=== PATIENT | female | born 2000 ===

== ENCOUNTER 2020-09-04 20:02 | Emergency (ER) | payer MEDICAID, OTHER ==
[~2020-09-04] VITALS: Ht 165 cm; Wt 100.0 kg
--- NOTE | 2020-09-04 21:33 | ED GU-Female ---
General Chief Complaint: Female Reproductive Stated Complaint: 3 WEEK MENSTRUAL CYCLE/ABD CRAMPING Source: patient Exam Limitations: no limitations History of Present Illness Date Seen by Provider: Sep 04, 2020 Time Seen by Provider: 21:10 Initial Comments This is a 19-year-old female who presents to the ER with complaints of chronic vaginal bleeding. States she has had bleeding between periods since the of her child in 2018. This episode started 3 weeks ago. States the first week was light spotting and now she is having up to 7 pads a day. States she does not feel as if her [facility]om[facility] health provider is working to figure out what is causing her persistent problems. Currently takes oral control daily. Only symptom today is fatigue. She is currently sexually active with more than one partner. No fever, chills, cough, shortness of breath, nausea/vomiting/diarrhea, or abdominal pain. Allergies and Home Medications Patient Home Medication List Home Medication List Reviewed: Yes Review of Systems Review of Systems Constitutional: see HPI EENTM: no symptoms reported Respiratory: no symptoms reported Cardiovascular: no symptoms reported Gastrointestinal: no symptoms reported Genitourinary: see HPI LMP: Sep 25, 2010 Musculoskeletal: no symptoms reported Skin: no symptoms reported Psychiatric/Neurological: No Symptoms Reported Endocrine: No Symptoms Reported Hematologic/Lymphatic: See HPI Past Qeonoam-Wrqyxk-Xlnlyu Hx Patient Social History Recent Foreign Travel: No Contact w/Someone Who Travel: No Physical Exam Vital Signs Vital Signs - First Documented 09/04/20 21:49 Temp 37.0 Pulse 67 Resp 12 B/P (MAP) 113/85 (94) Pulse Ox 98 O2 Delivery Room Air Capillary Refill : Height, Weight, BMI Height: '" Weight: lbs. oz. kg; BMI Method: General Appearance: WD/WN, no apparent distress HEENT: PERRL/EOMI, pharynx normal Neck: full range of motion, normal inspection Cardiovascular: regular rate, rhythm, no murmur Respiratory: lungs clear, normal breath sounds Gastrointestinal: normal bowel sounds, non tender, soft Genital/Rectal: normal genital exam, normal rectal exam, normal vaginal exam; No blood at urethral meatus Pelvic: normal external exam, normal adnexa, no cerv. motion tender; No lesions, No tender w/ cervical motion; vaginal bleeding, other (cervix closed ) Back: normal inspection Extremities: normal range of motion, normal inspection, no pedal edema Neurologic/Psychiatric: no motor/sensory deficits, alert, normal mood/affect, oriented x 3 Skin: normal color, warm/dry Progress/Results/Core Measures Suspected Sepsis SIRS Temperature: Pulse: Respiratory Rate: Laboratory Tests 09/04/20 21:30: White Blood Count 10.9 Blood Pressure / Mean: Laboratory Tests 09/04/20 21:30: Creatinine 0.77, Platelet Count 272, Total Bilirubin < 0.1L Results/Orders Lab Results Laboratory Tests Test 09/04/20 21:30 09/04/20 21:32 09/04/20 22:40 Range/Units White Blood Count 10.9 4.3-11.0 10^3/uL Red Blood Count 4.16 3.80-5.11 10^6/uL Hemoglobin 11.3 L 11.5-16.0 g/dL Hematocrit 36 35-52 % Mean Corpuscular Volume 86 80-99 fL Mean Corpuscular Hemoglobin 27 25-34 pg Mean Corpuscular Hemoglobin Concent 32 32-36 g/dL Red Cell Distribution Width 14.8 H 10.0-14.5 % Platelet Count 272 130-400 10^3/uL Mean Platelet Volume 11.9 9.0-12.2 fL Immature Granulocyte % (Auto) 0 % Neutrophils (%) (Auto) 53 42-75 % Lymphocytes (%) (Auto) 38 12-44 % Monocytes (%) (Auto) 8 0-12 % Eosinophils (%) (Auto) 1 0-10 % Basophils (%) (Auto) 1 0-10 % Neutrophils # (Auto) 5.7 1.8-7.8 10^3/uL Lymphocytes # (Auto) 4.1 H 1.0-4.0 10^3/uL Monocytes # (Auto) 0.8 0.0-1.0 10^3/uL Eosinophils # (Auto) 0.2 0.0-0.3 10^3/uL Basophils # (Auto) 0.1 0.0-0.1 10^3/uL Immature Granulocyte # (Auto) 0.0 0.0-0.1 10^3/uL Sodium Level 140 135-145 MMOL/L Potassium Level 3.7 3.6-5.0 MMOL/L Chloride Level 109 H 98-107 MMOL/L Carbon Dioxide Level 21 21-32 MMOL/L Anion Gap 10 5-14 MMOL/L Blood Urea Nitrogen 8 7-18 MG/DL Creatinine 0.77 0.60-1.30 MG/DL Estimat Glomerular Filtration Rate > 60 BUN/Creatinine Ratio 10 Glucose Level 86 70-105 MG/DL Calcium Level 8.7 8.5-10.1 MG/DL Corrected Calcium 8.9 8.5-10.1 MG/DL Total Bilirubin < 0.1 L 0.1-1.0 MG/DL Aspartate Amino Transf (AST/SGOT) 15 5-34 U/L Alanine Aminotransferase (ALT/SGPT) 11 0-55 U/L Alkaline Phosphatase 64 40-136 U/L Total Protein 7.2 6.4-8.2 GM/DL Albumin 3.7 3.2-4.5 GM/DL Serum Test, Qualitative NEGATIVE NEGATIVE Urine Color YELLOW Urine Clarity SL CLOUDY Urine pH 6.0 5-9 Urine Specific [place] >=1.030 1.016-1.022 Urine Protein TRACE H NEGATIVE Urine Glucose (UA) NEGATIVE NEGATIVE Urine Ketones NEGATIVE NEGATIVE Urine Nitrite NEGATIVE NEGATIVE Urine Bilirubin NEGATIVE NEGATIVE Urine Urobilinogen 0.2 < = 1.0 MG/DL Urine Leukocyte Esterase NEGATIVE NEGATIVE Urine RBC (Auto) 3+ H NEGATIVE Urine RBC 50-100 H /HPF Urine WBC RARE /HPF Urine Squamous Epithelial Cells 0-2 /HPF Urine Crystals NONE /LPF Urine Bacteria TRACE /HPF Urine Casts NONE /LPF Urine Mucus MODERATE H /LPF Urine Culture Indicated NO Micro Results Microbiology 09/04/20 Wet Prep - Final, Complete 09/04/20 Genital Culture - Preliminary, Resulted My Orders Orders - [employer] Cbc With Automated Diff (09/04/20 21:22) Comprehensive Metabolic Panel (09/04/20 21:22) Ua Culture If Indicated (09/04/20 21:22) Hcg,Qualitative Serum (09/04/20 21:22) Neisseria Gonorrhea Swab (09/04/20 21:22) Genital Culture (09/04/20 21:22) Chlamydia Trachomatis Swab (09/04/20 21:22) Wet Prep (09/04/20 22:40) Vital Signs/I&O Capillary Refill : Progress Note : Progress Note Pt. examined. No acute distress. Will order basic labs to check hgb level, preg, UA and STI's. Will plan to order pelvic US outpatient as no sono services are available tonight. Labs reviewed and are unremarkable. STI testing pending. Declined treatment today stating she wanted to wait for results. Hgb stable, no white count elevation. Reviewed findings with her and discussed discharge POC, she is agreeable with plan. Departure Impression Primary Impression: Metrorrhagia Disposition: HOME, SELF-CARE Condition: Stable/Unchanged Departure-Patient Inst. Decision time for Depature: 22:19 Referrals: NO,LOCAL PHYSICIAN (PCP/Family) Primary Care Physician Patient Instructions: Bleeding Between Periods Add. Discharge Instructions: Plan: 1. Return tomorrow for transvaginal ultrasound. Report will be sent to your [facility] Specialist. 2. May take Tylenol or Ibuprofen as needed for pain per package instructions. 3. Follow up with your primary care provider if your symptoms persist. 4. Return for any new or concerning symptoms. All discharge instructions reviewed with patient and/or family. Voiced understanding. MARISOL [employer] Sep 04, 2020 21:33
[2020-09-04 21:35] LABS: BASOPHILS # (AUTO) 0.1 10^3/uL (0.0-0.1); BASOPHILS % (AUTO) 1 % (0-10); EOSINOPHILS # (AUTO) 0.2 10^3/uL (0.0-0.3); EOSINOPHILS % (AUTO) 1 % (0-10); HEMATOCRIT 36 % (35-52); HEMOGLOBIN 11.3 g/dL (11.5-16.0); LYMPHOCYTES # (AUTO) 4.1 10^3/uL (1.0-4.0); LYMPHOCYTES % (AUTO) 38 % (12-44); MEAN CORPUSCULAR HEMOGLOBIN 27 pg (25-34); MEAN CORPUSCULAR HGB CONC 32 g/dL (32-36); MEAN CORPUSCULAR VOLUME 86 fL (80-99); MEAN PLATELET VOLUME 11.9 fL (9.0-12.2); MONOCYTES # (AUTO) 0.8 10^3/uL (0.0-1.0); MONOCYTES % (AUTO) 8 % (0-12); NEUTROPHILS # (AUTO) 5.7 10^3/uL (1.8-7.8); NEUTROPHILS % (AUTO) 53 % (42-75); PLATELET COUNT 272 10^3/uL (130-400); WHITE BLOOD COUNT 10.9 10^3/uL (4.3-11.0)
[2020-09-04 21:43] LABS: BILIRUBIN,URINE NEGATIVE (NEGATIVE); CLARITY,URINE SL CLOUDY; COLOR,URINE YELLOW; GLUCOSE, URINE (UA) NEGATIVE (NEGATIVE); KETONES,URINE NEGATIVE (NEGATIVE); LEUKOCYTE ESTERASE ,URINE NEGATIVE (NEGATIVE); NITRITE,URINE NEGATIVE (NEGATIVE); PROTEIN,URINE TRACE (NEGATIVE)
[2020-09-04 21:49] LABS: BACTERIA,URINE TRACE /HPF; RBC,URINE 50-100 /HPF; SQUAMOUS EPITHELIAL CELL,UR 0-2 /HPF; WBC,URINE RARE /HPF
[2020-09-04 21:49] LABS: ALBUMIN 3.7 GM/DL (3.2-4.5)
[2020-09-04 21:50] LABS: CHLORIDE 109 MMOL/L (98-107); POTASSIUM 3.7 MMOL/L (3.6-5.0); SODIUM 140 MMOL/L (135-145)
[2020-09-04 21:51] LABS: CALCIUM 8.7 MG/DL (8.5-10.1)
[2020-09-04 21:52] LABS: GLUCOSE 86 MG/DL (70-105); TOTAL PROTEIN 7.2 GM/DL (6.4-8.2)
[2020-09-04 21:53] LABS: CARBON DIOXIDE 21 MMOL/L (21-32)
[2020-09-04 21:54] LABS: BILIRUBIN,TOTAL < 0.1 MG/DL (0.1-1.0)
[2020-09-04 21:55] LABS: ALKALINE PHOSPHATASE 64 U/L (40-136)
[2020-09-04 21:56] LABS: CREATININE SERUM 0.77 MG/DL (0.60-1.30); GFR ESTIMATED > 60
[2020-09-04 21:57] LABS: BUN/CREATININE RATIO 10
[2020-09-04 21:59] LABS: ALANINE AMINOTRANSFERASE 11 U/L (0-55)
[2020-09-04 22:54] VITALS: BP 113/85
== END 2020-09-04 22:56 | disposition home or self-care (01) ==
LOC: ER 20:07
DX: N92.1 Excessive and frequent menstruation with irregular cycle (principal)
CPT/HCPCS: 36415; 80053; 81000; 84703; 85025; 87070; 87205; 87210; 87491; 87591